=== PATIENT | female | born 1985 | race Caucasian/White ===

== ENCOUNTER 2017-01-31 05:38 | Day surgery (SDC) | payer BC ==
[2017-01-28 15:53] VITALS: BMI 26.2
[2017-01-31] VITALS (26 sets, daily range): BP systolic 81–119; BP diastolic 43–90; PULSE 80–115; RESP 13–29; Ht 157.5 cm; Wt 66.1 kg
[~2017-01-31] VITALS: Ht 157.5 cm; Wt 66.1 kg
[~2017-01-31 05:38] MED LIST: CEFAZOLIN 2 GM/50 ML (PMX) 50 ML IVPB ONE; LACTATED RINGER'S 1,000 ML IV* SCH
[2017-01-31] MEDS ORDERED: PROPOFOL 40 ML ONE (06:52)
[2017-01-31] MEDS ORDERED: CEFAZOLIN 1 GM INJ ONE (06:52)
[2017-01-31] MEDS ORDERED: LIDOCAINE 100 MG SYRINGE ONE (06:52)
[2017-01-31] MEDS ORDERED: ROCURONIUM 50 MG INJ ONE (06:52)
[2017-01-31] MEDS ORDERED: DEXAMETHASONE 4 MG/ML 1 ML INJ ONE (06:53)
[2017-01-31] MEDS ORDERED: MIDAZOLAM 1 MG/ML 2 ML INJ ONE (06:53)
[2017-01-31] MEDS ORDERED: FAMOTIDINE 20 MG INJ ONE (06:54)
[2017-01-31] MEDS ORDERED: METOCLOPRAMIDE 10 MG INJ ONE (06:55)
[2017-01-31] MEDS ORDERED: SUCCINYLCHOLINE CHLORIDE 100 MG/5 ML SYG IV ONE (07:00)
[2017-01-31] MEDS ORDERED: GELATIN SIZE 100 SPONGE ONE (07:06)
[2017-01-31] MEDS ORDERED: PROPOFOL 100 ML ONE (07:06)
[2017-01-31] MEDS ORDERED: NAPR-688 PO (07:06)
[2017-01-31] MEDS ORDERED: FAMO20TA18 PO (07:06)
[2017-01-31] MEDS ORDERED: POLYMYXIN/BACITRACIN 1L IRRIG ONE (07:07)
[2017-01-31] MEDS ORDERED: BUPIVACAINE 0.25% (MPF) 30 ML INJ ONE (07:07)
[2017-01-31] MEDS ORDERED: THROMBIN 5000 UNIT VIAL ONE (07:07)
[2017-01-31] MEDS ORDERED: BUPIVACAINE 0.25%/EPI (SDV) 30 ML INJ ONE (07:07)
[2017-01-31] MEDS ORDERED: BUPIVACAINE 0.25%/EPI (SDV) 30 ML INJ INJ ONE (08:14)
[2017-01-31] MEDS ORDERED: POLYMYXIN/BACITRACIN 1L IRRIG IRR ONE (08:14)
[2017-01-31] MEDS ORDERED: GLYCOPYRROLATE 0.4 MG INJ ONE (08:23)
[2017-01-31] MEDS ORDERED: NEOSTIGMINE 3 MG/3 ML SYRINGE ONE (08:24)
[2017-01-31] MEDS ORDERED: ONDANSETRON 4 MG INJ ONE (08:26)
[2017-01-31] MEDS ORDERED: SURGIFOAM POWDER 1 GM KIT ONE (08:56)
[2017-01-31] MEDS ORDERED: METOCLOPRAMIDE 10 MG INJ IV PRN (09:00)
[2017-01-31] MEDS ORDERED: DIPHENHYDRAMINE 50 MG INJ IV PRN (09:00)
[2017-01-31] MEDS ORDERED: FENTAnyl 50 MCG/ML VIAL IV PRN ×3 (09:00)
[2017-01-31] MEDS ORDERED: MEPERIDINE 25 MG INJ IV PRN (09:00)
[2017-01-31] MEDS ORDERED: ONDANSETRON 4 MG INJ IV PRN ×2 (09:00→12:00)
[2017-01-31] MEDS ORDERED: SURGIFOAM POWDER 1 GM KIT MM ONE (09:02)
[2017-01-31] MEDS ORDERED: THROMBIN 5000 UNIT VIAL TOP ONE (09:02)
[2017-01-31] MEDS ORDERED: BETAMET NA PHOS/AC(6 MG/ML) 5ML INJ ONE (09:41)
[2017-01-31] MEDS ORDERED: KETOROLAC 30 MG INJ ONE (09:55)
[2017-01-31] MEDS ORDERED: DEXTROSE 5%-0.45% NACL 1,000 ML IV SCH (11:34)
[2017-01-31] MEDS ORDERED: HYDROmorphONE 0.2 MG/ML PCA IV SCH (12:00)
[2017-01-31] MEDS ORDERED: PROCHLORPERAZINE 10 MG TAB PO PRN (12:00)
[2017-01-31] MEDS ORDERED: HYDROCODONE/APAP (5/325) TAB GTB PRN (12:00)
[2017-01-31] MEDS ORDERED: NALOXONE (0.4 MG/ML) INJ IV PRN (12:00)
--- NOTE | 2017-01-31 16:22 | PDOCDIS ---
Discharge Instructions DIAGNOSIS Discharge Diagnosis: DISC HERNIATION, L4-L5 RIGHT CONDITION Patient Condition: Good HOME CARE INSTRUCTIONS: Diet Instructions: RegularYour diet recommendation is: REGULAR DIET ACTIVITY: Activity Restrictions: Slowly Increase Activity Rest between Activity Avoid heavy lifting Do not Drive Do not operate Machinery Do not operate Power Tool Avoid Heavy Housework Weight Bearing Bathing Restrictions: Sponge BathActivity Restrictions Comment: keep dressing dry x 1 week. FOLLOW UP/APPOINTMENTS Appointments Call office for follow up appointment in one week YUKI DE LA PAZ MD Jan 31, 2017 16:22
--- NOTE | 2017-01-31 16:33 | OPPN ---
Date/Time of Note Date/Time of Note DATE: 01/31/17 TIME: 16:26 Operative/Procedure Note Right laminotomy, L4-L5,with discectomy Pre-Operative Diagnosis HNP, right L4-L5 with PROXIMAL MIGRATION of free fragment Post-Operative Diagnosis Same, with large subligamentous extrusion, and with proximal migration of attached annular component, Procedure Right L4-L5 laminotomy, with discectomy, using prior incision (from left sided procedure). Use of microscope Spinal monitoring with interpretation. Surgeon: YUKI DE LA PAZ MD [employer]: BRIAN ADAMS MD Findings Subligamentous extrusion and proximal migration of annular tear Blood Usage/Administration None Estimated blood loss: 0 - 10 ml's Drains: Not applicable Specimens Disc fragments Complications: None YUKI DE LA PAZ MD Jan 31, 2017 16:33
--- NOTE | 2017-01-31 16:36 | EN ---
Date/Time of Note Date/Time of Note DATE: 01/31/17 TIME: 16:33 Event Note Surgery Surgery Event Note POST OP CHECK 1615 S: Minimal subjective complaints. O: Dressing dry. Neuro unchanged. Patient has been ambulated by PT. Patient has urinated. Patient ready for DC A: Satisfactory post op course. P: 1. Discharge when clear by RN and PT. 2. Patient has [facility] 3. Office one week. 4. Call office tomorrow. YUKI DE LA PAZ MD Jan 31, 2017 16:35
--- NOTE | 2017-01-31 17:21 | RADRPT ---
PROCEDURE: Intraoperative imaging of the lumbar spine with fluoroscopy. CLINICAL INDICATION: Back pain. Intraoperative. TECHNIQUE: 2 images of the lumbar spine were obtained in the operating room with an image intensif ier. No radiologist was in attendance. 8.2 seconds of fluoroscopy time was used. COMPARISON: No prior study is available for comparison. FINDINGS: For the purposes of this report, the last apparent true disc level is considered to be L5-S1. Based on this, posterior surgical instruments are present at L4-5 and L5-S1. IMPRESSION: 1. Intraoperative imaging of the lumbar spine. RPTAT: QQ .Wiley Mayer MD, MD Date Time Electronically viewed and signed by .Wiley Mayer MD, on 01/31/2017 17:21 .R/
[2017-01-31] MEDS ORDERED: CEFAZOLIN 1 GM/50 ML (PMX) 50 ML IVPB SCH (18:00)
--- NOTE | 2017-02-02 11:42 | OPR ---
DATE OF OPERATION: PREOPERATIVE DIAGNOSIS: Screening admission right L4-L5 and proximal migration. POSTOPERATIVE DIAGNOSIS: Screening admission right L4-L5 and proximal migration. OPERATIONS PERFORMED: 1. Micro lumbar laminotomy under microscope, L4-L5 right. 2. ____ SSEP. SURGEON: John Floyd MD DIRECTOR DENTAL SERVICES: ____ INDICATION FOR SURGERY: This patient has a rather precipitous onset of right leg pain at L4-L5 dist ribution. She had previously undergone an L4-L[facility] and had done well until recently. An MRI done in 11/26/2016 revealed desiccation with a disk herniation at L4-L5. There is proximal migration. This is particularly well seen in the T2 weighte d image sequence ____. The patient was offered conservative treatment ____ and she eventually elect ed the surgical procedure after receiving informed consent. DESCRIPTION OF PROCEDURE: She was identified in the holding unit, the surgical site was noted, then she was taken to the operating room and given general endotracheal anesthetic. She was carefully p ositioned face down on the Jarrell Yogesh. She was prepped and draped ____ x-rays were taken. The old incision which was 1 inch long in the midline at L4-L5 was used and taken down to the fascia. I had previously infiltrated with lidocaine with epinephrine. I had then done approximately 1 cm to the right of the midline, incised the fascia sharply, and resected the medial portion, and tied it b ack with a suture. I then used Col[place] elevators and blunt dissection to move the muscle wall out of t he midline and use electrocautery for 2 aponeuroses. I then placed a [place] retractor over the L4-L 5 interspace and confirmed this with a marker x-ray. By beginning distally, I exposed the L4-L5 interlaminar space and then used the drill and continued proximally. I drilled as medially as possible and proximally. Please note that the known problems in the axilla of the L4 root, which was where the fragment was believed to be, in terms of postopera tive foot drop were taken into account, and I performed laminotomy further proximally than would oth erwise be required for ____ migration or a midlevel bulge. The L4 root was identified. The axilla was identified, and the sac was carefully retracted proximal to disk space. I then worked distally to reduce the space after having carefully removed the later al-most aspects of the ligamentum flavum. Bulging in the midline as expected was appreciated. This was proximal to the disk space. This turned out to be a large rent of annulus which was followed b ackwards while backwards along the vessels and the inflammatory tissue. The disk space was isolated and incised sharply. Immediately beneath the surface, there was a hard ball of annular material in cluding some cartilaginous endplate. This compromised comprised of additional portion of the pathol ogy. This was removed with a nerve hook. This enabled further exposure of the axilla, and I resect ed the torn annular and ligamentous ____ sac into the disk area ____ 7-[place] and curettes and a pit uitary rongeur. A used pituitary rongeurs and a very limited amount of curettage to clean that prox imal portion. I did this at the place where the herniation had been. I was able to extend the disc otomy into the annular tear area which was immediately lateral to the TLL which was ligated more com pletely intact. SPECIMEN: For all of this was submitted. I then irrigated the space copiously and inspected the 4t h root and the 5th root. I applied a few drops of Kenalog and a few drops of Marcaine with epinephr ine. ____ Surgifoam was inserted ____ was placed on top of ____ and the medicine which I had placed . The muscles were then infiltrated with Marcaine with epinephrine. The retractor was then removed . The fascia was closed with interrupted [id number] #1 Vicryls. The subcutaneous tissue was c losed using #2-0 Vicryl and the skin was closed with 4-0 Monocryl and enforced with Dermabond. The patient tolerated this procedure well. There was less than 10 mL of blood loss. The SSEPs which we interpreted were shown to improve at both L4-L5 to normal by the close of the procedure. The patie nt was returned to the supine position, extubated, and transferred to the recovery room in satisfact ory condition, breathing spontaneously. Dictated By: JOHN BLAKE/MARIE Conf#: [id number] [facility]#: [id number]
== END 2017-01-31 19:00 | disposition home or self-care (01) ==
LOC: SUR 05:38 → SDS 05:38 → EDSTATUS 07:00 → MS1 12:35 → SUR 19:00
PROVIDERS: ATTEND Specialist
DX: M51.26 Other intervertebral disc displacement, lumbar region (principal)
CPT/HCPCS: 63030; 72100; 86850; 86900; 86901; 97163; J0330; J0690; J0702; J1100; J1885; J2001; J2175; J2250; J2405; J2710; J2765; J3010; J7042